=== PATIENT | female | born 1950 | race Caucasian/White ===

== ENCOUNTER → 2016-11-12 | Outpatient (CLI) | payer OTHER ==
[~2016-11-12] MED LIST: ALBU1AER9 INH; ATOR-24 PO; ATV5 PO; B-COTAB18 PO; CHOL100027 PO; DILT-119 PO; GLC5 PO; HYDC25 PO; LETR2TAB PO; LEVO100T PO; LOSA100T65 PO; MAGN400T6 PO; POTA10CA28 PO; VENL75CA73 PO; WARF2TAB PO; [UNRECOGNIZED DRUG - CODE] PO
[2016-11-12 14:58] VITALS: BP 154/86; PULSE 88; TEMP 37.1; O2SAT 96
--- NOTE | 2016-11-12 15:53 | Radiation Oncology Follow-Up ---
Radiation Oncology Follow-Up Date of Visit Nov 12, 2016. Reason For Visit One-month follow-up Radiation Completion Date 10/09/16 APB Diagnosis (1) Breast cancer Status: Acute Onset Date: 07/15/2016 Histology Subtype: ductal Stage: l (A) Permanent Comment: Abnormal left breast mammogram Status post stereotactic biopsy 07/15/2016 revealing invasive ductal carcinoma grade 1 Estrogen receptor positive, progesterone receptor positive, HER-2/genesis negative Status post abnormal right breast MRI Status post MRI guided biopsy, benign Status post left breast lumpectomy and sentinel lymph node biopsy 08/24/2016 No residual invasive carcinoma, presence of DCIS Final Stage pT1a pN0M0, Stage IA Status post completion of radiation therapy 10/09/2016 received 3850 cGy utilizing accelerated partial breast treatment Last Edited By: Kavita Tee on Oct 16, 2016 11:40 History of Present Illness Ms. Cabello is a 65-year-old female without a family history of breast cancer. She has been followed with annual screening mammograms. On 06/07/2013 the patient underwent bilateral digital screening mammograms. A cluster of calcifications was noted in the left breast at the 7:00 posterior depth that was indeterminant. Additional imaging consisting of a unilateral left digital diagnostic mammogram was performed on 06/16/2013. This confirmed a cluster of heterogeneous microcalcifications in the left breast at the 6:00 posterior depth. These appeared to increase in number from a previous spot magnification view dated 11/12/2010. A biopsy was recommended. This was performed on 2012 with a vacuum-assisted stereotactic core biopsy. This tissue was negative for in situ and invasive carcinoma. Case: [id number]. Ailyn continued to be followed with bilateral digital screening mammograms that remained unremarkable until 06/11/2016. This identified an 8 mm nodular asymmetry in the middle one third of the right breast along the posterior nipple line on the CC view. Additional spot compression total synthesis fuse and possibly ultrasound were recommended. Therefore on 06/30/2016 patient underwent bilateral digital diagnostic mammogram total synthesis and targeted right breast ultrasound. Spot magnification views of the left breast demonstrated faint amorphous pleomorphic microcalcifications extending in a linear distribution over 2.4 cm in the upper outer middle one third of the left breast. Further evaluation by a left breast stereotactic guided biopsy was recommended. Spot compression views of the nodular asymmetry was performed with no obvious irregular mass or architectural distortion identified. Ultrasound of the right breast from the 11 to 1 o'clock position retroareolar 5 to 7:00 axis revealed a few lobulated parallel hypoechoic cystic appearing masses with no suspicious solid masses identified. On 07/15/2016 the patient underwent a stereotactic guided biopsy of the left breast upper-outer quadrant. 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 Invasive carcinoma was positive for estrogen receptors (100%, strong). Invasive carcinoma was positive for progesterone receptors (100%, strong). Invasive carcinoma was negative for HER-2/genesis overexpression and confirmed negative by FISH analysis. Less than 10% of the invasive carcinoma cells were positive for Ki-67. No perineural or lymphovascular invasion was identified. Sections showed 2 small foci of infiltrating ductal carcinoma measuring 0.2 x 0.1 cm and 0.1 x 0.1 cm. Adjacent to the invasive carcinoma with foci of ductal carcinoma in situ, intermediate grade with necrosis. Case: [id number]. This tissue was ultimately reviewed at the [place] surgical pathology department. They confirmed the diagnosis. Accession #: [id number]. Patient was subsequently seen at [facility] for discussion of the treatment options. They recommended bilateral breast MRIs with without contrast. These were performed on 07/29/2016. In the left upper-outer quadrant there was a postbiopsy hematoma measuring 2.2 x 2.0 cm. The signal void from biopsy clip was noted in the anterior inferior margin of the hematoma. On MRI a linear non-mass enhancement measuring up to 6 cm was noted abutting the medial margin of the hematoma. An oval mass with slightly irregular margins in homogeneous enhancement measuring 0.8 x 0.5 cm was seen in the right breast upper inner quadrant at the 1:00 middle depth position. The patient met with Dr. Denae Chase who discussed treatment options. The patient was leaning toward breast conserving therapy. She discussed the possibility of a partial mastectomy and sentinel node biopsy on the left and a biopsy of the right breast area of enhancement. The patient agreed to proceed with this plan and on August 14 underwent a right breast mammotome biopsy of the 1 o'clock position. This was negative for malignancy and atypia. Accession #: [id number]. Ultimately the patient proceeded to a left partial mastectomy and sentinel node biopsy. 3 sentinel nodes were identified and all were negative for metastasis. The lumpectomy specimen showed minute focus of residual ductal carcinoma in situ, low nuclear grade. No evidence of residual invasive carcinoma was identified. All margins were reported as negative. The closest margin was the posterior margin at 0.5 cm. The final AJCC pathologic staging was therefore a pT1a pN0(sn-) ER positive, LA positive and HER-2/genesis negative. Accession #: [id number]. The patient is scheduled to be seen by Dr. Nieves for consideration and discussion of the role of adjuvant antiestrogen therapy. We were also asked to see the patient to discuss the role of adjuvant radiation. Options of treatment were reviewed with the patient. She returned and underwent CT simulation. She was found to be a candidate for accelerated partial breast irradiation. Treatment was completed 10/09/2016. She received 3850 cGy. Interim History Over the past 2 weeks she has developed a red area in the upper outer portion of the left breast. This area was quite painful over the weekend. It is now improved. There is no pain if she holds her arms still. With movement of her arm there is some mild discomfort. She has continued use the natural care gel. She has a skin tag in the upper outer portion of the breast. This became inflamed with treatment. She tried covering this with a Band-Aid and then had a reaction to the adhesive. She is no longer applying any Band-Aids. She has had dryness of the skin in the upper portion of the area of redness and at the nipple. She was seen by Dr. Nieves and started on Femara. She is tolerating the medication well and denies any side effects. Allergies Coded Allergies: TRACEY Inhibitors (Verified Allergy, Severe, Angioedema, 03/03/15) Simvastatin (Verified Allergy, Severe, CONFUSED, 03/03/15) Adhesives (Verified Allergy, Mild, 03/03/15) Prednisone (Verified Allergy, Mild, GOOFY, 03/03/15) Clarithromycin (Verified Allergy, Unknown, Anaphylaxis, 03/03/15) Lisinopril (Verified Allergy, Unknown, ?, 03/03/15) Penicillins (Verified Allergy, Unknown, gets a rash. CEPHS ARE OK, 03/03/15 ) Fluoxetine (Verified Adverse Reaction, Severe, CONFUSION, LOSS OF WEIGHT, 03/03/15) Morphine (Verified Adverse Reaction, Severe, Sick to stomach, Confusion, Hallucinations, 03/03/15) Clindamycin (Verified Adverse Reaction, Unknown, CONFUSION, 03/03/15) Home Medications Scheduled Albuterol (Proair Hfa), 2 PUFF INH Q4HR PRN Atorvastatin (Lipitor), 20 MG PO DAILY B-Complex Vitamins (Vitamin B Complex), 1 TAB PO DAILY Cholecalciferol (Vitamin D 1000 Unit), 2,000 INTER.UNIT PO DAILY Diltiazem Hcl Ext Rel (Tiazac), 360 MG PO DAILY Glipizide (Glipizide), 5 MG PO DAILY Hydrochlorothiazide (Hctz *), 25 MG PO DAILY Letrozole (Femara), 2.5 MG PO QAM Levothyroxine Sodium (Synthroid), 100 MCG PO DAILY Lorazepam (Ativan *), 0.5 MG PO BID PRN Losartan Potassium (Cozaar), 100 MG PO DAILY Magnesium Oxide (Mag-Ox), 400 MG PO DAILY Potassium Chloride (Micro-K Ext Rel), 10 MEQ PO DAILY Pregnenolone (Pregnenolone), 30 MG PO DAILY Venlafaxine Hcl (Venlafaxine Extended Rel), 150 MG PO DAILY Warfarin Sodium (Coumadin), 4 MG PO 5XWK Warfarin Sodium (Coumadin), 6 MG PO 2XWK Review of Systems Gastrointestinal: Symptoms: WNL Oral: Symptoms: No Problems Respiratory: Symptoms: WNL Urinary: Symptoms: WNL Skin: Other Skin Symptoms: See below notations Breast: Right Upper Arm Measurement: 42.0 Right Mid Arm Measurement: 32.0 Right Wrist Measurement: 19.0 Left Upper Arm Measurement: 39.5 Left Mid Arm Measurement: 31.0 Left Wrist Measurement: 18.5 Additional Notes: She completed a distress management report and answered "no" to all questions. Physical Exam Vital Signs Date Time Temp Pulse Resp B/P Pulse Ox O2 Delivery O2 Flow Rate FiO2 11/12/16 14:58 37.1 88 16 154/86 96 Pain: Patient Pain Scale: 0 - 10 Initial Pain Intensity: 0.0 General Appearance: no apparent distress Eyes: normal inspection, EOMI ENT: normal ENT inspection, hearing grossly normal Neck: no adenopathy, thyroid normal Respiratory/Chest: lungs clear, no respiratory distress, no accessory muscle use Breast: Breast examination reveals an area of erythema in the upper outer portion of the left breast. There is associated dry desquamation in the upper portion of the area of erythema. She has a 1 cm skin tag that is also raised and erythematous. There is no wet desquamation. She has no edema. There is no skin retractions or nipple changes. Her [place] score cosmesis currently is poor due to the erythema. Cardiovascular: regular rate, rhythm, no gallop, no murmur Neurologic/Psychiatric: no motor/sensory deficits, alert, normal mood/affect Laboratory Studies Test 10/01/16 13:14 11/02/16 14:26 POC Prothrombin Time INR 2.9 (0.9-1.1) 3.0 (0.9-1.1) Assessment & Plan Plan: She'll continue use with the natural care gel. I've given her Aquaphor to use at bedtime. She can use cool compresses needed if there is discomfort of the breast. We discussed the skin tag which has had a reaction. I've asked her to wait and observe how this heals over time. If she continues to have issues she is going to see her computer scientist . At some point in time she will have it removed but I discouraged any surgery currently and for the next few months so she has complete healing of the skin. She has a follow-up appointment with on 03/04/2017. She will also be having mammography at that visit in [place]. Today we completed a cancer survivorship care plan. A copy of the document was given to the patient. She was given a survivorship booklet. We asked her to return to our office in 6 months. She continues on Femara. She will continue follow-up with Dr. Nieves as well as her primary care physician. She will call if she has any questions or concerns in the interim. Total Time In Follow-Up I spent 20 minutes speaking to the patient performing examination. I spent 20 minutes reviewing information, preparing the survivorship document, and completing this note. Copy To Bonita Flowers M.D.; Marlo Nieves MD; Charlie Santillan M.D.; Dayton Emerson MD; Denae Chase M.D. Problem Qualifiers (1) Breast cancer: Breast location: upper outer quadrant of breast Laterality: left
== END | disposition home or self-care (01) ==
LOC: C.ONC 14:41
PROVIDERS: ATTEND Physician Assistant Medical
DX: Z08 Encounter for follow-up examination after completed treatment for malignant neoplasm (principal); Z92.3 Personal history of irradiation; Z85.3 Personal history of malignant neoplasm of breast

== ENCOUNTER → 2017-03-09 | Outpatient (CLI) | payer BC | END | disposition home or self-care (01) | LOC: C.PAPS 08:42 | PROVIDERS: ATTEND Obstetrics & Gynecology | DX: Z12.4 Encounter for screening for malignant neoplasm of cervix (principal) ==

== ENCOUNTER → 2017-03-14 | Outpatient (CLI) | payer BC | END | disposition home or self-care (01) | LOC: C.LABSPEC 17:55 | PROVIDERS: ATTEND Obstetrics & Gynecology | DX: Z12.11 Encounter for screening for malignant neoplasm of colon (principal) ==

== ENCOUNTER → 2017-03-24 | Outpatient (CLI) | payer BC ==
[2017-03-24 15:07] LABS: BASO % 0.3 %; BASO ABS # 0.02 K/uL (0-0.2); COMPLETE YES; EOS % 2.5 %; HEMATOCRIT 39.7 % (37-47); IG% 0.1 %; LYMPH % 23.5 %; LYMPH ABS # 1.85 K/uL (1.2-3.4); MEAN CELL VOLUME 90.8 fL (80-100); MEAN CORPUSCULAR HEMOGLOBIN 30.2 pg (25-34); MEAN CORPUSCULAR HGB CONC 33.2 g/dl (32-36); MEAN PLATELET VOLUME 11.1 fL (7.4-10.4); MONO % 7.2 %; NEUT % 66.4 %; PLATELET COUNT 269 K/uL (130-400); RED BLOOD COUNT 4.37 M/uL (4.2-5.4); WHITE BLOOD COUNT 7.87 K/uL (4.8-10.8)
[2017-03-24 15:43] LABS: ALB/GLOB RATIO 0.8 (0.9-2); ALT/SGPT 24 U/L (12-78); AST/SGOT 19 U/L (15-37); BLOOD UREA NITROGEN 24 mg/dl (7-18); BUN/CREATININE RATIO 16.1 (10-20); CALCIUM 9.7 mg/dl (8.5-10.1); CARBON DIOXIDE 31 mmol/L (21-32); CHLORIDE 103 mmol/L (98-107); CHOLESTEROL 160 mg/dl (0-200); GLUCOSE 148 mg/dl (70-99); POTASSIUM 3.7 mmol/L (3.5-5.1); SODIUM 138 mmol/L (136-145); URIC ACID 8.1 mg/dl (2.6-7.2)
[2017-03-24 15:53] LABS: ALKALINE PHOSPHATASE 106 U/L (45-117); CHOLESTEROL/HDL RATIO 2.8; HDL CHOLESTEROL 57 mg/dl; LDL CHOLESTEROL CALCULATED 76 mg/dl; TOTAL IRON BINDING CAPACITY 276 mcg/dl (250-450); TRIGLYCERIDES 135 mg/dl (0-150); VERY LOW DENSITY LIPOPROT CALC 27 mg/dl
[2017-03-25 06:45] LABS: ESTIMATED AVERAGE GLUCOSE 143 mg/dl; HA1C FLAG Normal (Normal)
== END | disposition home or self-care (01) ==
LOC: C.LAB1850 14:06
PROVIDERS: ATTEND Family Medicine
DX: R73.09 Other abnormal glucose (principal); E55.9 Vitamin D deficiency, unspecified; D51.9 Vitamin B12 deficiency anemia, unspecified; E78.9 Disorder of lipoprotein metabolism, unspecified; R53.83 Other fatigue

== ENCOUNTER → 2017-07-08 | Outpatient (CLI) | payer BC | END | disposition home or self-care (01) | LOC: C.MAMM 13:39 | PROVIDERS: ATTEND Internal Medicine Hematology & Oncology | DX: M85.88 Other specified disorders of bone density and structure, other site (principal); M85.851 Other specified disorders of bone density and structure, right thigh; M85.852 Other specified disorders of bone density and structure, left thigh; C50.919 Malignant neoplasm of unspecified site of unspecified female breast ==

== ENCOUNTER → 2017-08-04 | Outpatient (CLI) | payer BC ==
[2017-08-04 12:17] LABS: BASO % 0.2 %; BASO ABS # 0.02 K/uL (0-0.2); COMPLETE YES; EOS % 2.7 %; HEMATOCRIT 42.2 % (37-47); IG% 0.1 %; LYMPH % 35.7 %; LYMPH ABS # 2.99 K/uL (1.2-3.4); MEAN CELL VOLUME 91.3 fL (80-100); MEAN CORPUSCULAR HEMOGLOBIN 29.9 pg (25-34); MEAN CORPUSCULAR HGB CONC 32.7 g/dl (32-36); MEAN PLATELET VOLUME 11.1 fL (7.4-10.4); MONO % 7.5 %; NEUT % 53.8 %; PLATELET COUNT 300 K/uL (130-400); RED BLOOD COUNT 4.62 M/uL (4.2-5.4); WHITE BLOOD COUNT 8.37 K/uL (4.8-10.8)
[2017-08-04 12:42] LABS: ALT/SGPT 20 U/L (12-78); BLOOD UREA NITROGEN 25 mg/dl (7-18); BUN/CREATININE RATIO 18.4 (10-20); CALCIUM 9.9 mg/dl (8.5-10.1); CARBON DIOXIDE 32 mmol/L (21-32); CHLORIDE 98 mmol/L (98-107); CREATININE 1.37 mg/dl (0.60-1.20); GLUCOSE 141 mg/dl (70-99); POTASSIUM 3.7 mmol/L (3.5-5.1); SODIUM 134 mmol/L (136-145); URIC ACID 6.7 mg/dl (2.6-7.2)
[2017-08-04 12:45] LABS: ALB/GLOB RATIO 0.8 (0.9-2); ALKALINE PHOSPHATASE 112 U/L (45-117); AST/SGOT 17 U/L (15-37)
[2017-08-05 14:18] LABS: ESTIMATED AVERAGE GLUCOSE 143 mg/dl; HA1C FLAG Normal (Normal)
== END | disposition home or self-care (01) ==
LOC: C.LAB1850 11:18
PROVIDERS: ATTEND Family Medicine
DX: I10 Essential (primary) hypertension (principal)

== ENCOUNTER → 2017-09-15 | Outpatient (CLI) | payer BC ==
[2017-09-15 17:55] LABS: BASO % 0.2 %; BASO ABS # 0.02 K/uL (0-0.2); EOS % 2.1 %; EOS ABS # 0.21 K/uL (0-0.5); HEMATOCRIT 40.2 % (37-47); HEMOGLOBIN 13.7 g/dL (12.0-16.0); IG# 0.03 K/uL (0.00-0.02); LYMPH % 25.8 %; LYMPH ABS # 2.59 K/uL (1.2-3.4); MEAN CELL VOLUME 88.9 fL (80-100); MEAN CORPUSCULAR HEMOGLOBIN 30.3 pg (25-34); MEAN CORPUSCULAR HGB CONC 34.1 g/dl (32-36); MEAN PLATELET VOLUME 10.6 fL (7.4-10.4); MONO % 7.9 %; MONO ABS # 0.79 K/uL (0.11-0.59); NEUT % 63.7 %; NEUT ABS # 6.41 K/uL (1.4-6.5); PLATELET COUNT 317 K/uL (130-400); RED CELL DISTRIBUTION WIDTH SD 45.5 fL (36.4-46.3); WHITE BLOOD COUNT 10.05 K/uL (4.8-10.8)
[2017-09-15 18:17] LABS: ALBUMIN 3.5 gm/dl (3.4-5.0); ALT/SGPT 19 U/L (12-78); AST/SGOT 15 U/L (15-37); BLOOD UREA NITROGEN 25 mg/dl (7-18); CALCIUM 10.6 mg/dl (8.5-10.1); CARBON DIOXIDE 30 mmol/L (21-32); CREATININE 1.72 mg/dl (0.60-1.20); GLUCOSE 114 mg/dl (70-99); SODIUM 134 mmol/L (136-145); URIC ACID 6.7 mg/dl (2.6-7.2)
[2017-09-15 18:20] LABS: ALKALINE PHOSPHATASE 116 U/L (45-117); CHOLESTEROL 153 mg/dl (0-200); PHOSPHORUS 4.3 mg/dl (2.5-4.9); TOTAL PROTEIN 8.3 gm/dl (6.4-8.2)
[2017-09-16 06:49] LABS: HEMOGLOBIN A1C 6.8 % (4.5-5.6)
== END | disposition home or self-care (01) ==
LOC: C.LAB1850 17:16
PROVIDERS: ATTEND Podiatrist
DX: E11.621 Type 2 diabetes mellitus with foot ulcer (principal)

== ENCOUNTER → 2017-10-08 | Outpatient (CLI) | payer BC ==
[~2017-10-08] MED LIST changes: +AMLO-114 PO; +TRIA37.5 PO
== END | disposition home or self-care (01) ==
LOC: C.LAB1850 10:23
PROVIDERS: ATTEND Family Medicine
DX: E83.52 Hypercalcemia (principal)

== ENCOUNTER → 2017-11-05 | Outpatient (CLI) | payer BC ==
[~2017-11-05] MED LIST changes: +ALLO100T PO; -DILT-119 PO; +DOXY100C76 PO; -HYDC25 PO
[2017-11-05 17:35] LABS: BASO % 0.3 %; BASO ABS # 0.03 K/uL (0-0.2); EOS % 1.7 %; HEMATOCRIT 39.3 % (37-47); HEMOGLOBIN 13.3 g/dL (12.0-16.0); IG# 0.03 K/uL (0.00-0.02); LYMPH % 27.2 %; LYMPH ABS # 3.26 K/uL (1.2-3.4); MEAN CELL VOLUME 88.5 fL (80-100); MEAN CORPUSCULAR HGB CONC 33.8 g/dl (32-36); MEAN PLATELET VOLUME 10.1 fL (7.4-10.4); MONO % 8.8 %; MONO ABS # 1.06 K/uL (0.11-0.59); NEUT % 61.7 %; NEUT ABS # 7.41 K/uL (1.4-6.5); PLATELET COUNT 281 K/uL (130-400); RED CELL DISTRIBUTION WIDTH CV 14.1 % (11.5-14.5); RED CELL DISTRIBUTION WIDTH SD 45.7 fL (36.4-46.3); WHITE BLOOD COUNT 11.99 K/uL (4.8-10.8)
== END | disposition home or self-care (01) ==
LOC: C.LAB1850 17:20
PROVIDERS: ATTEND Podiatrist
DX: E11.621 Type 2 diabetes mellitus with foot ulcer (principal); L03.031 Cellulitis of right toe

== ENCOUNTER → 2018-01-04 | Outpatient (CLI) | payer BC ==
[~2018-01-04] MED LIST changes: -DOXY100C76 PO
[2018-01-04 14:38] LABS: BASO % 0.3 %; BASO ABS # 0.02 K/uL (0-0.2); EOS ABS # 0.15 K/uL (0-0.5); HEMATOCRIT 40.3 % (37-47); HEMOGLOBIN 13.5 g/dL (12.0-16.0); IG# 0.02 K/uL (0.00-0.02); LYMPH % 26.2 %; LYMPH ABS # 1.93 K/uL (1.2-3.4); MEAN CELL VOLUME 88.6 fL (80-100); MEAN CORPUSCULAR HEMOGLOBIN 29.7 pg (25-34); MEAN CORPUSCULAR HGB CONC 33.5 g/dl (32-36); MEAN PLATELET VOLUME 10.7 fL (7.4-10.4); MONO % 6.8 %; NEUT % 64.4 %; NEUT ABS # 4.75 K/uL (1.4-6.5); PLATELET COUNT 262 K/uL (130-400); RED CELL DISTRIBUTION WIDTH CV 14.1 % (11.5-14.5); RED CELL DISTRIBUTION WIDTH SD 45.9 fL (36.4-46.3); WHITE BLOOD COUNT 7.37 K/uL (4.8-10.8)
[2018-01-04 15:44] LABS: ALBUMIN 3.4 gm/dl (3.4-5.0); ALT/SGPT 25 U/L (12-78); AST/SGOT 18 U/L (15-37); BLOOD UREA NITROGEN 21 mg/dl (7-18); CALCIUM 9.4 mg/dl (8.5-10.1); CARBON DIOXIDE 31 mmol/L (21-32); CHOLESTEROL 214 mg/dl (0-200); CREATININE 1.29 mg/dl (0.60-1.20); GLUCOSE 137 mg/dl (70-99); POTASSIUM 3.4 mmol/L (3.5-5.1); SODIUM 138 mmol/L (136-145); URIC ACID 5.9 mg/dl (2.6-7.2)
[2018-01-04 15:54] LABS: ALKALINE PHOSPHATASE 108 U/L (45-117); LDL CHOLESTEROL CALCULATED 127 mg/dl; TRANSFERRIN 214 mg/dl (200-360)
[2018-01-05 06:19] LABS: HEMOGLOBIN A1C 6.6 % (4.5-5.6)
== END | disposition home or self-care (01) ==
LOC: C.LAB1850 13:16
PROVIDERS: ATTEND Internal Medicine Hematology & Oncology
DX: C50.412 Malignant neoplasm of upper-outer quadrant of left female breast (principal); R73.09 Other abnormal glucose; E55.9 Vitamin D deficiency, unspecified; D51.9 Vitamin B12 deficiency anemia, unspecified; E78.9 Disorder of lipoprotein metabolism, unspecified; R53.83 Other fatigue